=== PATIENT | male | born 1975 | race American Indian/Alaskan Native ===

== ENCOUNTER 2019-05-24 21:12 | Inpatient (IN) | payer SELFPAY ==
--- NOTE | 2019-05-24 21:32 | Emergency Department Report ---
ED Neuro Deficit HPI - General Stated Complaint: AMS Time Seen by Provider: 05/24/19 21:17 - History of Present Illness Initial Comments: [facility] Date of Service: 05/24/2019 20:55:57 Comments/Sign-Out: the patient does not appear to be aphasic or weak in any particular distribution. He appears to be perhaps acutely intoxicated restless agitated. Is not tender percent clear what he might of ingested. He is actually oriented but poorly attentive nothing focal to suggest acute ischemic stroke. Can certainly performed toxic metabolic workup, can consider MRI brain additional neuroimaging if he doesn't clear with time her is not clear what transpired at home. We do more of an altered mental status workup. Metrics: Last Known Well: Unknown [facility] Notification Time: 05/24/2019 20:55:27 Arrival Time: 05/24/2019 21:12:00 Stamp Time: 05/24/2019 20:55:57 Time First Login Attempt: 05/24/2019 21:02:00 Video Start Time: 05/24/2019 21:07:00 Symptoms: confusion, CP NIHSS Start Assessment Time: 05/24/2019 21:22:03 Patient is not a candidate for tPA. Patient was not deemed candidate for tPA thrombolytics because of patient appears altered intoxicated not strokelike. Video End Time: 05/24/2019 21:27:49 CT head showed no acute hemorrhage or acute core infarct. Clinical Presentation is not Suggestive of Large Vessel Occlusive Disease, Patient is not a Candidate for Thrombectomy Radiologist was not called back for review of advanced imaging because na ED Physician notified of diagnostic impression and management plan on 05/24/2019 21:27:48 Our recommendations are outlined below. Recommended Scan: MRI Head Lipid Panel to Be Obtained, if Not Done in the Last 30 Days Therapies: Physical Therapy, Occupational Therapy, Speech Therapy Assessment When Applicable Dysphaghia Screen: Swallow Evaluation, Bedside NPO Until Swallow Evaluation DVT prophylaxis: Choice of Primary Team Disposition: Neurology Follow Up Recommended Sign Out: Discussed with Emergency Department Provider History of Present Illness: Patient is a 43 year old Male. Patient was brought by EMS for symptoms of confusion, CP The patient has drinking then thought he heard some gunshots and then came back to his house where family members thought he was acting weird. Speech is alittle slurred, B weakness. BP ok. NO meds, no health issues. Lso some dizziness the patient appears intoxicated he can't really say when he started to feel unwell. CT head showed no acute hemorrhage or acute core infarct. Examination: 1A: Level of Consciousness - Alert; keenly responsive + 0 1B: Ask Month and Age - Both Questions Right + 0 1C: Blink Eyes & Squeeze Hands - Performs Both Tasks + 0 2: Test Horizontal Extraocular Movements - Normal + 0 3: Test Visual [place] - No Visual Loss + 0 4: Test Facial Palsy (Use Grimace if Obtunded) - Normal symmetry + 0 5A: Test Left Arm Motor Drift - No Drift for 10 Seconds + 0 5B: Test Right Arm Motor Drift - No Drift for 10 Seconds + 0 6A: Test Left Leg Motor Drift - No Effort Against [place] + 3 6B: Test Right Leg Motor Drift - No Effort Against [place] + 3 7: Test Limb Ataxia (FNF/Heel-Kirby) - No Ataxia + 0 8: Test Sensation - Normal; No sensory loss + 0 9: Test Language/Aphasia - Normal; No aphasia + 0 10: Test Dysarthria - Normal + 0 11: Test Extinction/Inattention - No abnormality + 0 NIHSS Score: 6 Patient was informed the Neurology Consult would happen via TeleHealth consult by way of interactive audio and video telecommunications and consented to receiving care in this manner. Due to the immediate potential for life-threatening deterioration due to underlying acute neurologic illness, I spent 35 minutes providing critical care. This time includes time for face to face visit via telemedicine, review of medical records, imaging studies and discussion of findings with providers, the patient and/or family. Dr Georgina Fierro [facility] ED Review of Systems ROS: Stated complaint: AMS Other details as noted in HPI ED Neuro Physical Exam - General Suspected Stroke: No Critical care attestation.: If time is entered above; I have spent that time in minutes in the direct care of this critically ill patient, excluding procedure time. ED Disposition Clinical Impression: Altered mental state Qualifiers: Altered mental status type: unspecified Qualified Code(s): R41.82 - Altered mental status, unspecified Disposition: DC/TX-65 PSY HOSP/PSY UNIT Is pt being admited?: Yes Condition: Stable
--- NOTE | 2019-05-24 21:36 | Emergency Department Report ---
HPI - General Time Seen by Provider: 05/24/19 21:17 - HPI HPI: Room 17 The patient is a 43-year-old male present with a chief complaint of altered mental status. Per EMS the patient admitted to drinking beer and then states he left his drink unattended and came back. The patient states his mouth began to get driving everything became "fuzzy." The patient states he then saw flashing lights and started running. Patient reported ranted words. Patient states he thought he heard gunshots. When asked how he is feeling now the patient states "I can't stop moving." ED Past Medical Hx - Past Medical History Previous Medical History?: No - Surgical History Additional Surgical History: Back surgery - Family History Family history: no significant - Social History Smoking Status: Current Every Day Smoker (2/3 pack/day) Substance Use Type: None (Denies illicit drug use), Alcohol ED Review of Systems ROS: Stated complaint: AMS Other details as noted in HPI Constitutional: no symptoms reported Eyes: denies: eye pain ENT: denies: throat pain Respiratory: no symptoms reported Cardiovascular: denies: chest pain Endocrine: no symptoms reported Psychiatric: anxiety Physical Exam - Physical Exam Physical Exam: GENERAL: The patient is well-developed well-nourished male slouched over on EMS stretcher with mouth open appearing altered. [] HEENT: Normocephalic. Atraumatic. Extraocular motions are intact. Patient has dry lips NECK: Supple. Trachea midline CHEST/LUNGS: Clear to auscultation. There is no respiratory distress noted. HEART/CARDIOVASCULAR: Regular. There is tachycardia. There is no gallop rub or murmur. ABDOMEN: Abdomen is soft, nontender. Patient has normal bowel sounds. There is no abdominal distention. SKIN: There is no rash. There is no edema. There is no diaphoresis. NEURO: The patient is awake but seems disoriented. The patient is intermittently cooperative with neurologic exam. Cranial nerves II through XII grossly intact. The patient has normal speech. Patient shrugs shoulders symmetrically but appears to have difficulty raising both arms above his head MUSCULOSKELETAL: There is no evidence of acute injury. ED Course - Consultations Consultation #1: 05/24/19 21:34 Case discussed with tele-neurologist- recommends work-up for encephalopathy. No TPA ED Medical Decision Making - Lab Data Laboratory Tests 05/24/19 05/24/19 05/24/19 21:31 21:31 21:31 WBC RBC Hgb Hct MCV MCH MCHC RDW Plt Count Lymph % (Auto) [place] % (Auto) Eos % (Auto) Baso % (Auto) Lymph # [place] # Eos # Baso # Seg Neutrophils % Seg Neutrophils # Sodium 139 Potassium 4.6 Chloride 95.4 L Carbon Dioxide 12 L Anion Gap 36 BUN 18 Creatinine 1.6 H Estimated GFR 58 BUN/Creatinine Ratio 11 Glucose 82 Calcium 10.4 H Total Bilirubin 1.20 AST 39 ALT 19 Alkaline Phosphatase 71 Ammonia 246.0 H Total Creatine Kinase 1265 H CK-MB (CK-2) 5.1 H CK-MB (CK-2) Rel Index 0.4 Troponin T < 0.010 Total Protein 7.3 Albumin 5.1 H Albumin/Globulin Ratio 2.3 Urine Opiates Screen Urine Methadone Screen Ur Barbiturates Screen Ur Phencyclidine Scrn Ur Amphetamines Screen U Benzodiazepines Scrn U Marijuana (THC) Screen Plasma/Serum Alcohol < 0.01 05/24/19 05/24/19 21:32 22:05 WBC 11.2 H RBC 5.27 H Hgb 13.7 Hct 43.1 MCV 82 L MCH 26 L MCHC 32 RDW 14.8 Plt Count 280 Lymph % (Auto) 13.2 L [place] % (Auto) 11.0 H Eos % (Auto) 0.4 Baso % (Auto) 0.7 Lymph # 1.5 [place] # 1.2 H Eos # 0.0 Baso # 0.1 Seg Neutrophils % 74.7 H Seg Neutrophils # 8.3 H Sodium Potassium Chloride Carbon Dioxide Anion Gap BUN Creatinine Estimated GFR BUN/Creatinine Ratio Glucose Calcium Total Bilirubin AST ALT Alkaline Phosphatase Ammonia Total Creatine Kinase CK-MB (CK-2) CK-MB (CK-2) Rel Index Troponin T Total Protein Albumin Albumin/Globulin Ratio Urine Opiates Screen Presumptive negative Urine Methadone Screen Presumptive negative Ur Barbiturates Screen Presumptive negative Ur Phencyclidine Scrn Presumptive negative Ur Amphetamines Screen Presumptive negative U Benzodiazepines Scrn Presumptive negative U Marijuana (THC) Screen Presumptive negative Plasma/Serum Alcohol Repeat ammonia level pending - EKG Data -: EKG Interpreted by Ri EKG shows normal: sinus rhythm Rate: tachycardia (103 bpm) - EKG Data When compared to previous EKG there are: previous EKG unavailable Interpretation: other (No ischemic changes seen) - Radiology Data Radiology results: report reviewed (CT head), image reviewed (CT head) Findings [facility] [address] [place] [address] Cat Scan Report Signed Patient: ROMAINE BOND MR#: [id number] : 1975 Acct:[id number] Age/Sex: 43 / M ADM Date: 05/24/19 Loc: ED Attending Dr: Ordering Physician: HEBER PUENTE MD Date of Service: 05/24/19 Procedure(s): CT head/brain wo con Accession Number(s): [id number] cc: HEBER PUENTE MD CT HEAD WITHOUT CONTRAST INDICATION: MAIN: STROKE ALERT. TECHNIQUE: Axial slices were obtained through the head. Coronal and sagittal reformatted images were o btained. COMPARISON: None available. FINDINGS: There is no intracranial hemorrhage or extra-axial fluid collection. Ventricles, basilar cisterns, and sulci appear within normal limits for age. There is no mass lesion or midline shift. No acute territorial infarct is identified. Bone windows demonstrate no acute osseous abnormality. Paranasal sinuses and mastoid air cells appear clear. TECHNIQUE: All CT scans at this facility use dose modulation, iterative reconstruction, automated exposure control, weight based dosing, when appropriate, to reduce radiation dose to as low as reasonably achievable. IMPRESSION: 1. No acute intracranial abnormality. Report called to Dr. Puente at 0838 hours central time Signer Name: Russ Vincent MD Signed: 05/24/2019 9:38 PM Workstation Name: [id number] Transcribed By: SS Dictated By: Russ Vincent MD Electronically Authenticated By: Russ Vincent MD Signed Date/Time: 05/24/192137 DD/ 33 TD/TT: - Differential Diagnosis Substance abuse, ICH, alcohol intoxication, electrolyte abnormality Critical care attestation.: If time is entered above; I have spent that time in minutes in the direct care of this critically ill patient, excluding procedure time. ED Disposition Clinical Impression: Rhabdomyolysis, Cocaine abuse Altered mental state Qualifiers: Altered mental status type: unspecified Qualified Code(s): R41.82 - Altered mental status, unspecified Disposition: DC-09 OP ADMIT IP TO THIS HOSP Is pt being admited?: Yes Does the pt Need Aspirin: No Condition: Fair Time of Disposition: 22:45 (Hospitalist paged (Dr. Aileen Lipscomb))
--- NOTE | 2019-05-24 21:43 | Cat Scan Report ---
CT HEAD WITHOUT CONTRAST INDICATION: MAIN: STROKE ALERT. TECHNIQUE: Axial slices were obtained through the head. Coronal and sagittal reformatted images were obtained. COMPARISON: None available. FINDINGS: There is no intracranial hemorrhage or extra-axial fluid collection. Ventricles, basilar cisterns, an d sulci appear within normal limits for age. There is no mass lesion or midline shift. No acute holden torial infarct is identified. Bone windows demonstrate no acute osseous abnormality. Paranasal sinuses and mastoid air cells appear clear. TECHNIQUE: All CT scans at this facility use dose modulation, iterative reconstruction, automated ex posure control, weight based dosing, when appropriate, to reduce radiation dose to as low as reasonab ly achievable. IMPRESSION: 1. No acute intracranial abnormality. Report called to Dr. Richardson at 0838 hours central time Signer Name: Russ Vincent MD Signed: 05/24/2019 9:38 PM Workstation Name: [id number]
[2019-05-24] MEDS ORDERED: SODIUM CHLORIDE 0.9% 1000 ML 1,000 ML IV ONE ×2 (21:50→22:22)
[2019-05-24 21:58] LABS: Basophils # (Auto) 0.1 K/mm3 (0.0-0.1); Basophils % (Auto) 0.7 % (0.0-1.8); Eosinophils % (Auto) 0.4 % (0.0-4.3); Hematocrit 43.1 % (35.5-45.6); Hemoglobin 13.7 gm/dl (11.8-15.2); Lymphocytes # (Auto) 1.5 K/mm3 (1.2-5.4); Lymphocytes % (Auto) 13.2 % (13.4-35.0); Mean Corpuscular HGB Conc 32 % (32-34); Mean Corpuscular Volume 82 fl (84-94); Monocytes # (Auto) 1.2 K/mm3 (0.0-0.8); Platelet Count 280 K/mm3 (140-440); Red Blood Count 5.27 M/mm3 (3.65-5.03); Red Cell Distribution Width 14.8 % (13.2-15.2)
[2019-05-24 22:08] LABS: Creatine Kinase MB 5.1 ng/mL (0.0-4.0)
[2019-05-24 22:19] LABS: Alanine Aminotransferase 19 units/L (7-56); Albumin 5.1 g/dL (3.9-5); BUN/Creatinine Ratio 11; Blood Urea Nitrogen 18 mg/dL (9-20); Calcium 10.4 mg/dL (8.4-10.2); Hemolysis Index 27
[2019-05-24 22:43] LABS: Amphetamine Screen,Urine PRESUMPTIVE NEGATIVE; Benzodiazepines Screen,Urine PRESUMPTIVE NEGATIVE; Cannabinoid Screen,Urine PRESUMPTIVE NEGATIVE; Methadone Screen,Urine PRESUMPTIVE NEGATIVE; Opiate Screen,Urine PRESUMPTIVE NEGATIVE
[2019-05-24 22:56] LABS: Cocaine Screen,Urine PRESUMPTIVE POSITIVE
[2019-05-24 23:39] VITALS: BP 122/71
--- NOTE | 2019-05-24 23:47 | History and Physical Report ---
Medications and Allergies Allergies Allergy/AdvReac Type Severity Reaction Status Date / Time No Known Allergies Allergy Unverified 05/24/19 21:47 Active Meds: Active Medications Enoxaparin Sodium (Enoxaparin) 30 mg SUB-Q QDAY KAYLA Exam - Constitutional Vitals: Temp Pulse Resp BP Pulse Ox 97.6 F 107 H 22 122/71 98 05/24/19 21:12 05/24/19 23:30 05/24/19 23:30 05/24/19 23:30 05/24/19 23:30 Results - Labs CBC & Chem 7: 05/24/19 21:32 05/24/19 21:31 Labs: Abnormal lab results 05/24/19 05/24/19 05/24/19 Range/Units 21:31 21:31 21:32 WBC 11.2 H (4.5-11.0) K/mm3 RBC 5.27 H (3.65-5.03) M/mm3 MCV 82 L (84-94) fl MCH 26 L (28-32) pg Lymph % (Auto) 13.2 L (13.4-35.0) % [place] % (Auto) 11.0 H (0.0-7.3) % [place] # 1.2 H (0.0-0.8) K/mm3 Seg Neutrophils % 74.7 H (40.0-70.0) % Seg Neutrophils # 8.3 H (1.8-7.7) K/mm3 Chloride 95.4 L (98-107) mmol/L Carbon Dioxide 12 L (22-30) mmol/L Creatinine 1.6 H (0.8-1.5) mg/dL Calcium 10.4 H (8.4-10.2) mg/dL Ammonia 246.0 H (25-60) umol/L Total Creatine Kinase 1265 H (55-170) units/L CK-MB (CK-2) 5.1 H (0.0-4.0) ng/mL Albumin 5.1 H (3.9-5) g/dL
[2019-05-25] MEDS ORDERED: ENOXAPARIN 40 MG/0.4 ML INJ SUB-Q SCH (10:00)
[2019-05-25] MEDS ORDERED: ENOXAPARIN 30 MG/0.3 ML INJ SUB-Q SCH (10:00)
== END 2019-05-25 00:40 | disposition left against medical advice (07) | DRG 558 ==
LOC: ED 21:12 → 3A 23:43
PROVIDERS: ADMIT Internal Medicine; ATTEND Internal Medicine
DX: M62.82 Rhabdomyolysis (principal); F14.10 Cocaine abuse, uncomplicated; F17.210 Nicotine dependence, cigarettes, uncomplicated
CPT/HCPCS: 36415; 70450; 80053; 80307; 80320; 82140; 82550; 82553; 84484; 85025; 93005; 93010; G0378; G0480; J7030